=== PATIENT | female | born 1960 | race Caucasian/White ===

== ENCOUNTER 2024-01-05 20:42 | Emergency (ER) | payer OTHER, SELFPAY ==
[2024-01-05 21:01] VITALS: BP 140/83; PULSE 81; RESP 22; TEMP 37.6; O2SAT 98; BMI 25.6
--- NOTE | 2024-01-05 21:35 | ED_ITS ---
HPI - Nausea/Vomiting/Diarrhea General Time Seen by Provider: 21:35 <Ivelisse Lu MD - Last Filed: 01/06/24 00:57> Date Seen: 01/05/24 <Ivelisse Lu MD - Last Filed: 01/06/24 00:57> Chief complaint: Nausea/Vomiting <Ivelisse Lu MD - Last Filed: 01/06/24 00:57> Stated complaint: Vomit, dizzy <Ivelisse Lu MD - Last Filed: 01/06/24 00:57> Time Seen by Provider: 01/05/24 21:35 <Ivelisse Lu MD - Last Filed: 01/06/24 00:57> Source: patient <Ivelisse Lu MD - Last Filed: 01/06/24 00:57> Mode of arrival: ambulatory <Ivelisse Lu MD - Last Filed: 01/06/24 00:57> Limitations: no limitations <Ivelisse Lu MD - Last Filed: 01/06/24 00:57> History of Present Illness HPI Narrative: Patient is a pleasant 63-year-old female very dramatic in appearance with vomiting is started at 0930 this morning. Patient notes that she awoke feeling okay. At 0930 she was having breakfast and suddenly had the urge to vomit. She has had continued vomiting all day to the point where she has only retching now. She notes body aches as well and feeling very hot. She denies diarrhea. She notes her belly hurts everywhere. She has a history of chronic constipation, small-bowel obstruction greater than a decade ago, many abdominal surgeries including splenectomy. She has no known ill contacts. She has not been able to take food or any medications. Her significant other is present and appears very loving and supportive. <Ivelisse Lu MD - Last Filed: 01/06/24 00:57> Associated nausea: Yes <Ivelisse Lu MD - Last Filed: 01/06/24 00:57> Related Data Home medications: Home Medications Medication Instructions Recorded Confirmed albuterol sulfate 90 mcg/actuation 2 puff inhalation Q6H PRN wheezing 01/05/24 01/05/24 aerosol inhaler (Ventolin HFA) levothyroxine 150 mcg tablet 150 mcg PO DAILY 01/05/24 01/05/24 valsartan 160 mg tablet 160 mg PO DAILY 01/05/24 01/05/24 Previous Rx's Medication Instructions Recorded promethazine 25 mg tablet 25 mg PO Q6H PRN #10 tabs 01/06/24 <Ivelisse Lu MD - Last Filed: 01/06/24 00:57> Allergies/Adverse reactions: Allergies Allergy/AdvReac Type Severity Reaction Status Date / Time lisinopril Allergy Mild Cough Verified 01/05/24 22:06 prednisone Allergy Unknown Verified 01/05/24 22:06 <Ivelisse Lu MD - Last Filed: 01/06/24 00:57> Review of Systems Status of ROS: Reports: 10 or more systems reviewed and unremarkable except as noted in History and below <Ivelisse Lu MD - Last Filed: 01/06/24 00:57> Narrative: Body ache <Ivelisse Lu MD - Last Filed: 01/06/24 00:57> Const: Reports: fever, chills and fatigue <Ivelisse Lu MD - Last Filed: 01/06/24 00:57> Eyes: Denies: change in vision <Ivelisse Lu MD - Last Filed: 01/06/24 00:57> ENMT: Reports: nasal discharge (When vomiting); Denies: throat pain, neck pain, throat swelling or nasal congestion <Ivelisse Lu MD - Last Filed: 01/06/24 00:57> Cardio: Denies: chest pain, palpitations or shortness of breath with exertion <Ivelisse Lu MD - Last Filed: 01/06/24 00:57> Resp: Denies: shortness of breath or cough <Ivelisse Lu MD - Last Filed: 01/06/24 00:57> GI: Reports: abdominal pain, nausea, vomiting and constipation; Denies: diarrhea or blood in stool <Ivelisse Lu MD - Last Filed: 01/06/24 00:57> : Denies: painful urination <Ivelisse Lu MD - Last Filed: 01/06/24 00:57> Musculo: Denies: neck pain <Ivelisse Lu MD - Last Filed: 01/06/24 00:57> Integ/Breast: Denies: rash <Ivelisse Lu MD - Last Filed: 01/06/24 00:57> Neuro: Reports: weakness in extremities <Ivelisse Lu MD - Last Filed: 01/06/24 00:57> Endo: Reports: fatigue <Ivelisse Lu MD - Last Filed: 01/06/24 00:57> Allergy/Immuno: Denies: throat swelling <Ivelisse Lu MD - Last Filed: 01/06/24 00:57> [facility] Social History: Social History Smoking Status: Never smoker How often do you have a drink containing alcohol: never AUDIT-C Alcohol total score: 0 Non-prescribed substance use: marijuana (any form) service: No <Ivelisse Lu MD - Last Filed: 01/06/24 00:57> Exam Narrative: Exam Narrative: Patient is awake alert oriented when I enter room. She is very anxious. Very dramatic when she is vomiting. Her eyes are clear. Face symmetrical. Heart with a regular rate and rhythm. Lungs are clear bilaterally. Abdomen shows some right upper quadrant tenderness. Lower extremities without edema. She is able to move all of her extremities. Initially in the position but when vomiting able to sit up and retching again is very dramatic. <Ivelisse Lu MD - Last Filed: 01/06/24 00:57> Const: Vital Signs, click to edit/add: Vital Signs - 24 hr 01/05/24 21:01 01/06/24 00:20 01/06/24 00:30 Temperature 99.7 F H Pulse Rate [Pulse Oximeter] 81 72 Respiratory Rate 22 16 Blood Pressure [Ri ght Upper Arm] 140/83 H 174/120 H Pulse Oximetry 98 98 94 Oxygen Delivery Me thod Room Air Room Air <Ivelisse Lu MD - Last Filed: 01/06/24 00:57> Vital Signs, click to edit/add: Vital Signs - 24 hr 01/05/24 21:01 01/06/24 00:20 01/06/24 00:30 Temperature 99.7 F H Pulse Rate [Pulse Oximeter] 81 72 Respiratory Rate 22 16 Blood Pressure [Ri ght Upper Arm] 140/83 H 174/120 H Pulse Oximetry 98 98 94 Oxygen Delivery Me thod Room Air Room Air <Jose Wetzel MD - Last Filed: 01/06/24 02:05> Documenting provider has reviewed patient's vital signs: yes <Ivelisse Lu MD - Last Filed: 01/06/24 00:57> Course Course ED Course: Differential diagnosis includes but is not limited to small-bowel obstruction, biliary colic, gastritis, COVID, influenza. Will place IV, give 1 L normal saline Zofran 4 mg and Toradol 15 mg IV. Will check CBC, comprehensive panel, CRP, urinalysis and COVID/influenza/RSV. One must also consider angina, underlying acute coronary event. Will add EKG and troponin. Plan on re-examination and awaiting labs to determine if imaging is required. <Ivelisse Lu MD - Last Filed: 01/06/24 00:57> Reevaluation(s) Reevaluation #1: Patient noted to have prolonged QT on her EKG. Will check magnesium level. Patient noted to be much improved after Zofran. Still has persisting abdominal pain mainly in the mid sided abdomen, right lower quadrant. No rebound tenderness at this time. Given ongoing symptoms will order CT of the abdomen with IV contrast. <Ivelisse Lu MD - Last Filed: 01/06/24 00:57> Reevaluation #2: CT of the abdomen does show evidence of portal hypertension with esophageal varices. Absent spleen. Gallbladder is unremarkable. Re- examination shows no right upper quadrant tenderness at this time. Patient improved significantly after Zofran but now nausea has been returning. Given patient's prolonged QT on EKG will use Ativan 0.5 mg p.o.. Fortunately no evidence of small-bowel obstruction. Triple swab is negative. EKG does not show any acute ST or T-wave changes. Initial troponin is elevated at 0.06 this is in the indeterminate range and this will be repeated at this time. <Ivelisse Lu MD - Last Filed: 01/06/24 00:57> CT of the abdomen does show evidence of portal hypertension with esophageal varices. Absent spleen. Gallbladder is unremarkable. Re- examination shows no right upper quadrant tenderness at this time. Patient improved significantly after Zofran but now nausea has been returning. Given patient's prolonged QT on EKG will use Ativan 0.5 mg p.o.. Fortunately no evidence of small-bowel obstruction. Triple swab is negative. EKG does not show any acute ST or T-wave changes. Initial troponin is elevated at 0.06 this is in the indeterminate range and this will be repeated at this time. <Jose Wetzel MD - Last Filed: 01/06/24 02:05> Reevaluation #3: Patient continues to have no emesis. She states she has a headache coming on is requesting more Toradol. I did explain that I am unable to repeat the dose of Toradol at this time. She does deny history of narcotic addiction. Will use morphine 4 mg IV. I did explain to patient findings on her CT which include cirrhosis as well as portal hypertension and esophageal varices. She does note that she did have significant alcohol use previously and was aware of the cirrhosis. She will need to follow-up with specialists in regards to these findings. Alcohol level is 0. <Ivelisse Lu MD - Last Filed: 01/06/24 00:57> Additional Reevaluation(s): 1:43 a.m. labs independently interpreted by me with urine drug screen positive for amphetamines, cocaine, and marijuana in spite of patient Nile of using any drugs symptoms today are likely related to polysubstance abuse with component of cannabis hyperemesis syndrome. Additionally, slightly elevated troponin is likely leak from stress. Lactate was slightly elevated initially, repeat is normal. Negative CRP. Anticipate discharge unless significant increase in troponin. Repeat EKG performed at 1:52 a.m. independently interpreted by me with sinus rhythm rate 69, no acute ST elevations or depressions, normal intervals, normal axis, QTC 507, MD 184. Compared to prior of earlier today, QTC is less prolonged. Repeat troponin is 0.09. Patient has had a slow rise in troponins while she has been in the department, however reports no chest pain and no EKG changes. Patient rechecked and she is feeling better, resting comfortably. We discussed findings today including slightly elevated troponin. Discussed admission to the hospital, patient declined admission and would like to be discharged. Given that troponin leak is likely secondary due to strain and not acute coronary syndrome, this is reasonable. Patient will follow up with primary care. <Jose Wetzel MD - Last Filed: 01/06/24 02:05> Vital Signs Vital signs: Initial Vital Signs Temperature 99.7 F H 01/05/24 21:01 Temperature Source Temporal Artery Scan 01/05/24 21:01 Pulse Rate 81 01/05/24 21:01 Respiratory Rate 22 01/05/24 21:01 Blood Pressure 140/83 H 01/05/24 21:01 Blood Pressure Mean 102 01/05/24 21:01 Blood Pressure Position Sitting 01/05/24 21:01 Pulse Oximetry 98 01/05/24 21:01 Oxygen Delivery Method Room Air 01/05/24 21:01 Vital Signs Temperature 99.7 F H 01/05/24 21:01 Pulse Rate 81 01/05/24 21:01 Respiratory Rate 22 01/05/24 21:01 Blood Pressure 140/83 H 01/05/24 21:01 Pulse Oximetry 98 01/05/24 21:01 Oxygen Delivery Method Room Air 01/05/24 21:01 Temperature 99.7 F H 01/05/24 21:01 Pulse Rate 72 01/06/24 00:20 Respiratory Rate 16 01/06/24 00:20 Blood Pressure 174/120 H 01/06/24 00:20 Pulse Oximetry 94 01/06/24 00:30 Oxygen Delivery Method Room Air 01/06/24 00:20 <Ivelisse Lu MD - Last Filed: 01/06/24 00:57> Initial Vital Signs Temperature 99.7 F H 01/05/24 21:01 Temperature Source Temporal Artery Scan 01/05/24 21:01 Pulse Rate 81 01/05/24 21:01 Respiratory Rate 22 01/05/24 21:01 Blood Pressure 140/83 H 01/05/24 21:01 Blood Pressure Mean 102 01/05/24 21:01 Blood Pressure Position Sitting 01/05/24 21:01 Pulse Oximetry 98 01/05/24 21:01 Oxygen Delivery Method Room Air 01/05/24 21:01 Vital Signs Temperature 99.7 F H 01/05/24 21:01 Pulse Rate 81 01/05/24 21:01 Respiratory Rate 22 01/05/24 21:01 Blood Pressure 140/83 H 01/05/24 21:01 Pulse Oximetry 98 01/05/24 21:01 Oxygen Delivery Method Room Air 01/05/24 21:01 Temperature 99.7 F H 01/05/24 21:01 Pulse Rate 72 01/06/24 00:20 Respiratory Rate 16 01/06/24 00:20 Blood Pressure 174/120 H 01/06/24 00:20 Pulse Oximetry 94 01/06/24 00:30 Oxygen Delivery Method Room Air 01/06/24 00:20 <Jose Wetzel MD - Last Filed: 01/06/24 02:05> Medications Administered Medications: Generic Name Dose Route Start Last Admin Trade Name Freq PRN Reason Stop Dose Admin Morphine Sulfate 4 mg 01/06/24 00:52 01/06/24 01:02 Morphine 4 Mg/Ml Inj IVP 01/06/24 00:53 4 mg ONCE ONE Administration Discontinued Medications Generic Name Dose Route Start Last Admin Trade Name Freq PRN Reason Stop Dose Admin Sodium Chloride 1,000 mls @ 1,000 mls/hr 01/05/24 21:43 01/05/24 23:10 0.9 % Sodium Chloride 1000 Ml IV 01/05/24 22:42 Infused .Q1H TEENA Infusion Sodium Chloride 1,000 mls @ 1,000 mls/hr 01/05/24 23:28 01/06/24 00:51 0.9 % Sodium Chloride 1000 Ml IV 01/06/24 00:27 Infused .Q1H TEENA Infusion Magnesium Sulfate 2 gm in 50 mls @ 150 mls/hr 01/05/24 23:28 01/06/24 00:16 Magnesium Iv IVPB 01/05/24 23:47 Infused ONCE ONE Infusion Ketorolac Tromethamine 15 mg 01/05/24 21:43 01/05/24 22:10 Ketorolac 15 Mg/Ml Inj IVP 01/05/24 21:44 15 mg ONCE ONE Administration Lorazepam 0.5 mg 01/06/24 00:03 01/06/24 00:11 Lorazepam 2 Mg/Ml Inj IVP 01/06/24 00:04 0.5 mg ONCE ONE Administration Ondansetron HCl 4 mg 01/05/24 21:43 01/05/24 22:10 Ondansetron 2 Mg/Ml Inj IVP 01/05/24 21:44 4 mg ONCE ONE Administration <Ivelisse Lu MD - Last Filed: 01/06/24 00:57> Generic Name Dose Route Start Last Admin Trade Name Alyssa PRN Reason Stop Dose Admin Morphine Sulfate 4 mg 01/06/24 00:52 01/06/24 01:02 Morphine 4 Mg/Ml Inj IVP 01/06/24 00:53 4 mg ONCE ONE Administration Discontinued Medications Generic Name Dose Route Start Last Admin Trade Name Alyssa PRN Reason Stop Dose Admin Sodium Chloride 1,000 mls @ 1,000 mls/hr 01/05/24 21:43 01/05/24 23:10 0.9 % Sodium Chloride 1000 Ml IV 01/05/24 22:42 Infused .Q1H TEENA Infusion Sodium Chloride 1,000 mls @ 1,000 mls/hr 01/05/24 23:28 01/06/24 00:51 0.9 % Sodium Chloride 1000 Ml IV 01/06/24 00:27 Infused .Q1H TEENA Infusion Magnesium Sulfate 2 gm in 50 mls @ 150 mls/hr 01/05/24 23:28 01/06/24 00:16 Magnesium Iv IVPB 01/05/24 23:47 Infused ONCE ONE Infusion Ketorolac Tromethamine 15 mg 01/05/24 21:43 01/05/24 22:10 Ketorolac 15 Mg/Ml Inj IVP 01/05/24 21:44 15 mg ONCE ONE Administration Lorazepam 0.5 mg 01/06/24 00:03 01/06/24 00:11 Lorazepam 2 Mg/Ml Inj IVP 01/06/24 00:04 0.5 mg ONCE ONE Administration Ondansetron HCl 4 mg 01/05/24 21:43 01/05/24 22:10 Ondansetron 2 Mg/Ml Inj IVP 01/05/24 21:44 4 mg ONCE ONE Administration <Jose Wetzel MD - Last Filed: 01/06/24 02:05> MDM - Nausea/Vomiting/Diarrhea MDM Narrative Medical decision making narrative: 1. Vomiting-fairly dramatic evidence of vomiting and dry heaving. Patient denies to me history of daily marijuana use. States last use was 2 weeks ago and prior to that it was greater than 30 years ago. No evidence of acute abnormality noted on abdominal CT. Patient does have evidence of esophageal nathan ices and thus obviously would like to inhibit any retching. Zofran initially used but now I do note prolonged QT. Will use Ativan at this time. No evidence of colitis, cholelithiasis or cholecystitis. No evidence of bowel obstruction. Vomiting has since resolved. Certainly could be attributed to a viral type illness. Will add urinary tox. 2. Esophageal varices-this appears to be chronic problem. No reports of bleeding while vomiting. Did not witness any him hematemesis here. Patient reveals that she did have past history of known cirrhosis as well as heavy drinking. She does not use alcohol anymore. Alcohol level is 0. 3. Prolonged QT. QT corrected 589 milliseconds. Magnesium on the low side and with persistent vomiting did elect to replace with 2 g IV magnesium. 4. Elevated troponin-patient denies chest pain, has no acute ST or T-wave changes noted on EKG but now has 2 cardiac enzymes that are in the indeterminate range. 0.06 followed by 0.07. Will need to trend this once more. Will have the lab do a backup as these are point of care troponins and would want to ensure that these are accurate. 5. Disposition-I have signed this patient out to my partner Dr. Wetzel for follow-up of EKG and troponin in 2 hours, drug screen. <Ivelisse Lu MD - Last Filed: 01/06/24 00:57> Medical Records Medical records narrative: No previous records in our system. <Ivelisse Lu MD - Last Filed: 01/06/24 00:57> Lab Data Attestation: I reviewed the patient's lab results. <Ivelisse Lu MD - Last Filed: 01/06/24 00:57> Labs: Lab Results 01/05/24 01/05/24 01/05/24 Range/Units 21:00 21:43 21:55 WBC 4.15 L (4.50-11.00) K/uL RBC 4.11 (4.00-5.20) m/uL Hgb 13.2 (12.0-16.0) gm/dL Hct 37.7 (33.0-51.0) % MCV 92 (80-100) fL MCH 32 (26-34) pg MCHC 35 (32-36) gm/dL RDW Coeff of Nathan 11.6 (11.5-15.5) % Plt Count 328 (140-440) K/uL Neut % (Auto) 67.4 (42.0-72.0) % Lymph % (Auto) 23.9 (20-44) % [place] % (Auto) 7.5 (0.0-11.0) % Eos % (Auto) 0.0 (0.0-7.0) % Baso % (Auto) 1.2 (0.0-3.0) % Neut # (Auto) 2.80 (1.7-7.0) K/uL Lymph # (Auto) 1.00 (0.90-2.90) K/uL [place] # (Auto) 0.30 (0.00-0.90) K/UL Eos # (Auto) 0.00 (0.00-0.50) K/uL Baso # (Auto) 0.00 (0.00-0.30) K/uL Abs Immat Gran (auto) 0.00 (0.00-0.30) K/uL Imm/Tot Granulo (auto) 0.0 % Diff Slide Review Acceptable Review (Acceptable) Sodium 136 (135-149) mmol/L Potassium 3.7 (3.6-5.1) mmol/L Chloride 104 (96-114) mmol/L Carbon Dioxide 22 (20-32) mmol/L Anion Gap 10 (7-15) mEq/L BUN 13 (7-30) mg/dL Creatinine 0.4 L (0.5-1.5) mg/dL Estimated Creat Clear 45.54 Estimated GFR 111 ml/min Glucose 93 (60-115) mg/dL Lactate 3.7 H (0.5-1.9) mmol/L Calcium 9.7 (8.4-10.6) mg/dL Magnesium 1.7 (1.5-2.6) mg/dL Total Bilirubin 1.1 (0.1-1.5) mg/dL AST 40 H (12-35) U/L ALT 30 (4-35) U/L Alkaline Phosphatase 82 (40-150) U/L Troponin I 0.06 H* (0.01-0.04) ng/mL C-Reactive Protein < 0.5 L (0.5-1.0) mg/dL Total Protein 8.6 H (6.0-8.3) g/dL Albumin 4.6 (3.3-5.0) g/dL Urine Color (Yellow) Urine Appearance (Clear) Urine pH (5.0-8.5) Ur Specific [place] (1.000-1.030) Urine Protein (Negative) Urine Glucose (UA) (Negative) Urine Ketones (Negative) Urine Blood (Negative) Urine Nitrite (Negative) Urine Bilirubin (Negative) Urine Urobilinogen (0.2-1.0) Ur Leukocyte Esterase (Negative) Urine RBC (0-2) Urine WBC (0-5) Ur Squamous Epith Cells (None-Few) Amorphous Sediment (None) Urine Bacteria (None) Urine Opiates Screen (Negative) Ur Oxycodone Screen (Negative) Urine Methadone Screen (Negative) Ur Barbiturates Screen (Negative) U Tricyclic Antidepress (Negative) Ur Phencyclidine Scrn (Negative) Ur Amphetamines Screen (Negative) U Methamphetamines Scrn (Negative) U Benzodiazepines Scrn (Negative) Urine Cocaine Screen (Negative) U Marijuana (THC) Screen (Negative) Ur Drug Screen Comment Ethyl Alcohol < 0.01 L (0.01-0.03) % SARS-CoV-2 (PCR) Negative SARS-CoV-2 (Negative) Influenza Type A (PCR) Negative PCR FLU A (Negative) Influenza Type B (PCR) Negative PCR FLU B (Negative) RSV (PCR) Negative PCR RSV (Negative) Lab Acknowledgement POC Troponin I (0.01-0.04) ng/ml 01/05/24 01/05/24 01/05/24 Range/Units 22:42 23:45 23:55 WBC (4.50-11.00) K/uL RBC (4.00-5.20) m/uL Hgb (12.0-16.0) gm/dL Hct (33.0-51.0) % MCV (80-100) fL MCH (26-34) pg MCHC (32-36) gm/dL RDW Coeff of Nathan (11.5-15.5) % Plt Count (140-440) K/uL Neut % (Auto) (42.0-72.0) % Lymph % (Auto) (20-44) % [place] % (Auto) (0.0-11.0) % Eos % (Auto) (0.0-7.0) % Baso % (Auto) (0.0-3.0) % Neut # (Auto) (1.7-7.0) K/uL Lymph # (Auto) (0.90-2.90) K/uL [place] # (Auto) (0.00-0.90) K/UL Eos # (Auto) (0.00-0.50) K/uL Baso # (Auto) (0.00-0.30) K/uL Abs Immat Gran (auto) (0.00-0.30) K/uL Imm/Tot Granulo (auto) % Diff Slide Review (Acceptable) Sodium (135-149) mmol/L Potassium (3.6-5.1) mmol/L Chloride (96-114) mmol/L Carbon Dioxide (20-32) mmol/L Anion Gap (7-15) mEq/L BUN (7-30) mg/dL Creatinine (0.5-1.5) mg/dL Estimated Creat Clear Estimated GFR ml/min Glucose (60-115) mg/dL Lactate 1.3 (0.5-1.9) mmol/L Calcium (8.4-10.6) mg/dL Magnesium (1.5-2.6) mg/dL Total Bilirubin (0.1-1.5) mg/dL AST (12-35) U/L ALT (4-35) U/L Alkaline Phosphatase (40-150) U/L Troponin I 0.08 H* (0.01-0.04) ng/mL C-Reactive Protein (0.5-1.0) mg/dL Total Protein (6.0-8.3) g/dL Albumin (3.3-5.0) g/dL Urine Color (Yellow) Urine Appearance (Clear) Urine pH (5.0-8.5) Ur Specific [place] (1.000-1.030) Urine Protein (Negative) Urine Glucose (UA) (Negative) Urine Ketones (Negative) Urine Blood (Negative) Urine Nitrite (Negative) Urine Bilirubin (Negative) Urine Urobilinogen (0.2-1.0) Ur Leukocyte Esterase (Negative) Urine RBC (0-2) Urine WBC (0-5) Ur Squamous Epith Cells (None-Few) Amorphous Sediment (None) Urine Bacteria (None) Urine Opiates Screen (Negative) Ur Oxycodone Screen (Negative) Urine Methadone Screen (Negative) Ur Barbiturates Screen (Negative) U Tricyclic Antidepress (Negative) Ur Phencyclidine Scrn (Negative) Ur Amphetamines Screen (Negative) U Methamphetamines Scrn (Negative) U Benzodiazepines Scrn (Negative) Urine Cocaine Screen (Negative) U Marijuana (THC) Screen (Negative) Ur Drug Screen Comment Ethyl Alcohol (0.01-0.03) % SARS-CoV-2 (PCR) (Negative) Influenza Type A (PCR) (Negative) Influenza Type B (PCR) (Negative) RSV (PCR) (Negative) Lab Acknowledgement Test Added POC Troponin I 0.07 H (0.01-0.04) ng/ml 01/06/24 01/06/24 01/06/24 Range/Units 00:27 00:34 01:45 WBC (4.50-11.00) K/uL RBC (4.00-5.20) m/uL Hgb (12.0-16.0) gm/dL Hct (33.0-51.0) % MCV (80-100) fL MCH (26-34) pg MCHC (32-36) gm/dL RDW Coeff of Nathan (11.5-15.5) % Plt Count (140-440) K/uL Neut % (Auto) (42.0-72.0) % Lymph % (Auto) (20-44) % [place] % (Auto) (0.0-11.0) % Eos % (Auto) (0.0-7.0) % Baso % (Auto) (0.0-3.0) % Neut # (Auto) (1.7-7.0) K/uL Lymph # (Auto) (0.90-2.90) K/uL [place] # (Auto) (0.00-0.90) K/UL Eos # (Auto) (0.00-0.50) K/uL Baso # (Auto) (0.00-0.30) K/uL Abs Immat Gran (auto) (0.00-0.30) K/uL Imm/Tot Granulo (auto) % Diff Slide Review (Acceptable) Sodium (135-149) mmol/L Potassium (3.6-5.1) mmol/L Chloride (96-114) mmol/L Carbon Dioxide (20-32) mmol/L Anion Gap (7-15) mEq/L BUN (7-30) mg/dL Creatinine (0.5-1.5) mg/dL Estimated Creat Clear Estimated GFR ml/min Glucose (60-115) mg/dL Lactate (0.5-1.9) mmol/L Calcium (8.4-10.6) mg/dL Magnesium (1.5-2.6) mg/dL Total Bilirubin (0.1-1.5) mg/dL AST (12-35) U/L ALT (4-35) U/L Alkaline Phosphatase (40-150) U/L Troponin I (0.01-0.04) ng/mL C-Reactive Protein (0.5-1.0) mg/dL Total Protein (6.0-8.3) g/dL Albumin (3.3-5.0) g/dL Urine Color Yellow (Yellow) Urine Appearance Clear (Clear) Urine pH 7.5 (5.0-8.5) Ur Specific [place] 1.020 (1.000-1.030) Urine Protein 1+ A (Negative) Urine Glucose (UA) Negative (Negative) Urine Ketones 1+ A (Negative) Urine Blood 1+ A (Negative) Urine Nitrite Negative (Negative) Urine Bilirubin Negative (Negative) Urine Urobilinogen 0.2 (0.2-1.0) Ur Leukocyte Esterase Negative (Negative) Urine RBC 0-2 (0-2) Urine WBC 0-2 (0-5) Ur Squamous Epith Cells Few (None-Few) Amorphous Sediment Few A (None) Urine Bacteria None (None) Urine Opiates Screen Negative (Negative) Ur Oxycodone Screen Negative (Negative) Urine Methadone Screen Negative (Negative) Ur Barbiturates Screen Negative (Negative) U Tricyclic Antidepress Negative (Negative) Ur Phencyclidine Scrn Negative (Negative) Ur Amphetamines Screen POSITIVE A (Negative) U Methamphetamines Scrn Negative (Negative) U Benzodiazepines Scrn Negative (Negative) Urine Cocaine Screen POSITIVE A (Negative) U Marijuana (THC) Screen POSITIVE A (Negative) Ur Drug Screen Comment See Note Ethyl Alcohol (0.01-0.03) % SARS-CoV-2 (PCR) (Negative) Influenza Type A (PCR) (Negative) Influenza Type B (PCR) (Negative) RSV (PCR) (Negative) Lab Acknowledgement Test Added POC Troponin I 0.09 H (0.01-0.04) ng/ml <Ivelisse Lu MD - Last Filed: 01/06/24 00:57> Lab Results 01/05/24 01/05/24 01/05/24 Range/Units 21:00 21:43 21:55 WBC 4.15 L (4.50-11.00) K/uL RBC 4.11 (4.00-5.20) m/uL Hgb 13.2 (12.0-16.0) gm/dL Hct 37.7 (33.0-51.0) % MCV 92 (80-100) fL MCH 32 (26-34) pg MCHC 35 (32-36) gm/dL RDW Coeff of Nathan 11.6 (11.5-15.5) % Plt Count 328 (140-440) K/uL Neut % (Auto) 67.4 (42.0-72.0) % Lymph % (Auto) 23.9 (20-44) % [place] % (Auto) 7.5 (0.0-11.0) % Eos % (Auto) 0.0 (0.0-7.0) % Baso % (Auto) 1.2 (0.0-3.0) % Neut # (Auto) 2.80 (1.7-7.0) K/uL Lymph # (Auto) 1.00 (0.90-2.90) K/uL [place] # (Auto) 0.30 (0.00-0.90) K/UL Eos # (Auto) 0.00 (0.00-0.50) K/uL Baso # (Auto) 0.00 (0.00-0.30) K/uL Abs Immat Gran (auto) 0.00 (0.00-0.30) K/uL Imm/Tot Granulo (auto) 0.0 % Diff Slide Review Acceptable Review (Acceptable) Sodium 136 (135-149) mmol/L Potassium 3.7 (3.6-5.1) mmol/L Chloride 104 (96-114) mmol/L Carbon Dioxide 22 (20-32) mmol/L Anion Gap 10 (7-15) mEq/L BUN 13 (7-30) mg/dL Creatinine 0.4 L (0.5-1.5) mg/dL Estimated Creat Clear 45.54 Estimated GFR 111 ml/min Glucose 93 (60-115) mg/dL Lactate 3.7 H (0.5-1.9) mmol/L Calcium 9.7 (8.4-10.6) mg/dL Magnesium 1.7 (1.5-2.6) mg/dL Total Bilirubin 1.1 (0.1-1.5) mg/dL AST 40 H (12-35) U/L ALT 30 (4-35) U/L Alkaline Phosphatase 82 (40-150) U/L Troponin I 0.06 H* (0.01-0.04) ng/mL C-Reactive Protein < 0.5 L (0.5-1.0) mg/dL Total Protein 8.6 H (6.0-8.3) g/dL Albumin 4.6 (3.3-5.0) g/dL Urine Color (Yellow) Urine Appearance (Clear) Urine pH (5.0-8.5) Ur Specific [place] (1.000-1.030) Urine Protein (Negative) Urine Glucose (UA) (Negative) Urine Ketones (Negative) Urine Blood (Negative) Urine Nitrite (Negative) Urine Bilirubin (Negative) Urine Urobilinogen (0.2-1.0) Ur Leukocyte Esterase (Negative) Urine RBC (0-2) Urine WBC (0-5) Ur Squamous Epith Cells (None-Few) Amorphous Sediment (None) Urine Bacteria (None) Urine Opiates Screen (Negative) Ur Oxycodone Screen (Negative) Urine Methadone Screen (Negative) Ur Barbiturates Screen (Negative) U Tricyclic Antidepress (Negative) Ur Phencyclidine Scrn (Negative) Ur Amphetamines Screen (Negative) U Methamphetamines Scrn (Negative) U Benzodiazepines Scrn (Negative) Urine Cocaine Screen (Negative) U Marijuana (THC) Screen (Negative) Ur Drug Screen Comment Ethyl Alcohol < 0.01 L (0.01-0.03) % SARS-CoV-2 (PCR) Negative SARS-CoV-2 (Negative) Influenza Type A (PCR) Negative PCR FLU A (Negative) Influenza Type B (PCR) Negative PCR FLU B (Negative) RSV (PCR) Negative PCR RSV (Negative) Lab Acknowledgement POC Troponin I (0.01-0.04) ng/ml 01/05/24 01/05/24 01/05/24 Range/Units 22:42 23:45 23:55 WBC (4.50-11.00) K/uL RBC (4.00-5.20) m/uL Hgb (12.0-16.0) gm/dL Hct (33.0-51.0) % MCV (80-100) fL MCH (26-34) pg MCHC (32-36) gm/dL RDW Coeff of Nathan (11.5-15.5) % Plt Count (140-440) K/uL Neut % (Auto) (42.0-72.0) % Lymph % (Auto) (20-44) % [place] % (Auto) (0.0-11.0) % Eos % (Auto) (0.0-7.0) % Baso % (Auto) (0.0-3.0) % Neut # (Auto) (1.7-7.0) K/uL Lymph # (Auto) (0.90-2.90) K/uL [place] # (Auto) (0.00-0.90) K/UL Eos # (Auto) (0.00-0.50) K/uL Baso # (Auto) (0.00-0.30) K/uL Abs Immat Gran (auto) (0.00-0.30) K/uL Imm/Tot Granulo (auto) % Diff Slide Review (Acceptable) Sodium (135-149) mmol/L Potassium (3.6-5.1) mmol/L Chloride (96-114) mmol/L Carbon Dioxide (20-32) mmol/L Anion Gap (7-15) mEq/L BUN (7-30) mg/dL Creatinine (0.5-1.5) mg/dL Estimated Creat Clear Estimated GFR ml/min Glucose (60-115) mg/dL Lactate 1.3 (0.5-1.9) mmol/L Calcium (8.4-10.6) mg/dL Magnesium (1.5-2.6) mg/dL Total Bilirubin (0.1-1.5) mg/dL AST (12-35) U/L ALT (4-35) U/L Alkaline Phosphatase (40-150) U/L Troponin I 0.08 H* (0.01-0.04) ng/mL C-Reactive Protein (0.5-1.0) mg/dL Total Protein (6.0-8.3) g/dL Albumin (3.3-5.0) g/dL Urine Color (Yellow) Urine Appearance (Clear) Urine pH (5.0-8.5) Ur Specific [place] (1.000-1.030) Urine Protein (Negative) Urine Glucose (UA) (Negative) Urine Ketones (Negative) Urine Blood (Negative) Urine Nitrite (Negative) Urine Bilirubin (Negative) Urine Urobilinogen (0.2-1.0) Ur Leukocyte Esterase (Negative) Urine RBC (0-2) Urine WBC (0-5) Ur Squamous Epith Cells (None-Few) Amorphous Sediment (None) Urine Bacteria (None) Urine Opiates Screen (Negative) Ur Oxycodone Screen (Negative) Urine Methadone Screen (Negative) Ur Barbiturates Screen (Negative) U Tricyclic Antidepress (Negative) Ur Phencyclidine Scrn (Negative) Ur Amphetamines Screen (Negative) U Methamphetamines Scrn (Negative) U Benzodiazepines Scrn (Negative) Urine Cocaine Screen (Negative) U Marijuana (THC) Screen (Negative) Ur Drug Screen Comment Ethyl Alcohol (0.01-0.03) % SARS-CoV-2 (PCR) (Negative) Influenza Type A (PCR) (Negative) Influenza Type B (PCR) (Negative) RSV (PCR) (Negative) Lab Acknowledgement Test Added POC Troponin I 0.07 H (0.01-0.04) ng/ml 01/06/24 01/06/24 01/06/24 Range/Units 00:27 00:34 01:45 WBC (4.50-11.00) K/uL RBC (4.00-5.20) m/uL Hgb (12.0-16.0) gm/dL Hct (33.0-51.0) % MCV (80-100) fL MCH (26-34) pg MCHC (32-36) gm/dL RDW Coeff of Nathan (11.5-15.5) % Plt Count (140-440) K/uL Neut % (Auto) (42.0-72.0) % Lymph % (Auto) (20-44) % [place] % (Auto) (0.0-11.0) % Eos % (Auto) (0.0-7.0) % Baso % (Auto) (0.0-3.0) % Neut # (Auto) (1.7-7.0) K/uL Lymph # (Auto) (0.90-2.90) K/uL [place] # (Auto) (0.00-0.90) K/UL Eos # (Auto) (0.00-0.50) K/uL Baso # (Auto) (0.00-0.30) K/uL Abs Immat Gran (auto) (0.00-0.30) K/uL Imm/Tot Granulo (auto) % Diff Slide Review (Acceptable) Sodium (135-149) mmol/L Potassium (3.6-5.1) mmol/L Chloride (96-114) mmol/L Carbon Dioxide (20-32) mmol/L Anion Gap (7-15) mEq/L BUN (7-30) mg/dL Creatinine (0.5-1.5) mg/dL Estimated Creat Clear Estimated GFR ml/min Glucose (60-115) mg/dL Lactate (0.5-1.9) mmol/L Calcium (8.4-10.6) mg/dL Magnesium (1.5-2.6) mg/dL Total Bilirubin (0.1-1.5) mg/dL AST (12-35) U/L ALT (4-35) U/L Alkaline Phosphatase (40-150) U/L Troponin I (0.01-0.04) ng/mL C-Reactive Protein (0.5-1.0) mg/dL Total Protein (6.0-8.3) g/dL Albumin (3.3-5.0) g/dL Urine Color Yellow (Yellow) Urine Appearance Clear (Clear) Urine pH 7.5 (5.0-8.5) Ur Specific [place] 1.020 (1.000-1.030) Urine Protein 1+ A (Negative) Urine Glucose (UA) Negative (Negative) Urine Ketones 1+ A (Negative) Urine Blood 1+ A (Negative) Urine Nitrite Negative (Negative) Urine Bilirubin Negative (Negative) Urine Urobilinogen 0.2 (0.2-1.0) Ur Leukocyte Esterase Negative (Negative) Urine RBC 0-2 (0-2) Urine WBC 0-2 (0-5) Ur Squamous Epith Cells Few (None-Few) Amorphous Sediment Few A (None) Urine Bacteria None (None) Urine Opiates Screen Negative (Negative) Ur Oxycodone Screen Negative (Negative) Urine Methadone Screen Negative (Negative) Ur Barbiturates Screen Negative (Negative) U Tricyclic Antidepress Negative (Negative) Ur Phencyclidine Scrn Negative (Negative) Ur Amphetamines Screen POSITIVE A (Negative) U Methamphetamines Scrn Negative (Negative) U Benzodiazepines Scrn Negative (Negative) Urine Cocaine Screen POSITIVE A (Negative) U Marijuana (THC) Screen POSITIVE A (Negative) Ur Drug Screen Comment See Note Ethyl Alcohol (0.01-0.03) % SARS-CoV-2 (PCR) (Negative) Influenza Type A (PCR) (Negative) Influenza Type B (PCR) (Negative) RSV (PCR) (Negative) Lab Acknowledgement Test Added POC Troponin I 0.09 H (0.01-0.04) ng/ml <Jose Wetzel MD - Last Filed: 01/06/24 02:05> Imaging Data CT scan - abdomen: Attestation: I have reviewed the pertinent imaging results. <Ivelisse Lu MD - Last Filed: 01/06/24 00:57> Radiologist's impression: Lower chest: Mild pleural parenchymal scarring is seen in the right middle lobe. Moderate atherosclerotic calcifications are noted in the coronary arteries. Liver: The liver has a nodular capsular contour, consistent with micronodular cirrhosis. No focal liver lesions are identified on monophasic imaging. Spleen: Previous splenectomy noted with no significant intraabdominal splenosis seen. Pancreas: Unremarkable. Gallbladder: Unremarkable. Kidney: There is a nonobstructing 8 mm stone seen in the midzone of the right kidney. There is a 9 mm hypodense lesion in the upper pole of the left kidney, too small to further characterize. Adrenal: Unremarkable. Bowel: The gastric antrum is collapsed and difficult to evaluate. Previous appendectomy noted with no significant appendiceal stump identified. Vascular: Small esophageal varices are present. Lymph: Unremarkable. Peritoneum: Unremarkable. No pneumoperitoneum is seen. No significant ascites is noted. Pelvis: The patient is status post hysterectomy. Soft tissue: Unremarkable. Bone: Mild levoscoliosis is noted with severe degenerative disc disease seen at L4- IMPRESSION: 1. The liver has a nodular capsular contour, consistent with micronodular cirrhosis. Esophageal varices are present and consistent with portal hypertension. <Ivelisse Lu MD - Last Filed: 01/06/24 00:57> ECG Data Attestation: I personally reviewed and interpreted this ECG as follows: <Ivelisse Lu MD - Last Filed: 01/06/24 00:57> ECG interpretation date: 01/05/24 <Ivelisse Lu MD - Last Filed: 01/06/24 00:57> Discharge Plan Discharge Clinical Impression: Hypertension, portal, Polysubstance abuse, Drug-induced nausea and vomiting Esophageal varices Qualifiers: Esophageal varices type: unspecified type Esophageal varices bleeding: without bleeding Qualified Code(s): I85.00 - Esophageal varices without bleeding Abdominal pain Qualifiers: Abdominal location: unspecified location Qualified Code(s): R10.9 - Unspecified abdominal pain Vomiting Qualifiers: Vomiting type: unspecified Nausea presence: with nausea Qualified Code(s): R11.2 - Nausea with vomiting, unspecified <Ivelisse Lu MD - Last Filed: 01/06/24 00:57> Patient Disposition: Home, Self-Care <Ivelisse Lu MD - Last Filed: 01/06/24 00:57> Condition: Improved <Ivelisse Lu MD - Last Filed: 01/06/24 00:57> Instructions: Acute Nausea and Vomiting (DC) <Ivelisse Lu MD - Last Filed: 01/06/24 00:57> Additional Instructions: Recommend follow-up with your clinic as you need a specialty consultation for evaluation of liver cirrhosis as well as esophageal varices and portal hypertension. It appears that you have been seen through [facility] in the past. Increase fluids. Return for worsening symptoms and as needed <Ivelisse Lu MD - Last Filed: 01/06/24 00:57> Prescriptions: New promethazine 25 mg tablet 25 mg PO Q6H PRNQty: 10 0RF No Action levothyroxine 150 mcg tablet 150 mcg PO DAILY albuterol sulfate [Ventolin HFA] 90 mcg/actuation HFA aerosol inhaler 2 puff inhalation Q6H PRN (Reason: wheezing) valsartan 160 mg tablet 160 mg PO DAILY <Ivelisse Lu MD - Last Filed: 01/06/24 00:57> Follow Up/Referrals: Provider,Not a Local [Primary Care Provider] - <Ivelisse Lu MD - Last Filed: 01/06/24 00:57> Stand Alone Forms: [facility] Info Instructions <Ivelisse Lu MD - Last Filed: 01/06/24 00:57>
[2024-01-05 21:52] LABS: PCR FLU A Negative PCR FLU A (Negative); PCR FLU B Negative PCR FLU B (Negative); PCR RSV Negative PCR RSV (Negative); SARS PCR* Negative SARS-CoV-2 (Negative)
[2024-01-05 22:08] LABS: Lactate Sepsis w/Reflex* 3.7 mmol/L (0.5-1.9)
[2024-01-05] MEDS: 0.9 % SODIUM CHLORIDE 1000 ml 1,000 ML IV ×2 (22:08→23:40)
[2024-01-05 22:09] LABS: Basophils Percent Auto 1.2 % (0.0-3.0); Hematocrit 37.7 % (33.0-51.0); Hemoglobin* 13.2 gm/dL (12.0-16.0); Lymphocytes Percent Auto 23.9 % (20-44); Mean Corpuscular HGB Conc 35 gm/dL (32-36); Mean Corpuscular Hemoglobin 32 pg (26-34); Mean Corpuscular Volume 92 fL (80-100); Monocytes Percent Auto 7.5 % (0.0-11.0); Neutrophils Percent Auto 67.4 % (42.0-72.0); Platelet Count* 328 K/uL (140-440); RDW Coefficient of Variation % 11.6 % (11.5-15.5); Red Blood Count 4.11 m/uL (4.00-5.20); White Blood Count* 4.15 K/uL (4.50-11.00)
[2024-01-05] MEDS: ONDANSETRON 2 MG/ML inj 4 MG IVP (22:10)
[2024-01-05] MEDS: KETOROLAC 15 MG/ML inj IVP (22:10)
[2024-01-05 22:17] LABS: Slide Review Reflex Yes
[2024-01-05 22:31] LABS: Albumin* 4.6 g/dL (3.3-5.0); Chloride* 104 mmol/L (96-114)
[2024-01-05 22:32] LABS: Potassium* 3.7 mmol/L (3.6-5.1); Sodium* 136 mmol/L (135-149)
[2024-01-05 22:34] LABS: Bilirubin Total* 1.1 mg/dL (0.1-1.5); Creatinine* 0.4 mg/dL (0.5-1.5); Est. Creatinine Clearance* 45.54; Estimated Glomerular Filt Rate 111 ml/min
[2024-01-05 22:35] LABS: Alkaline Phosphatase* 82 U/L (40-150); Anion Gap 10 mEq/L (7-15); Aspartate Amino Transferase* 40 U/L (12-35); Blood Urea Nitrogen* 13 mg/dL (7-30); Calcium* 9.7 mg/dL (8.4-10.6); Carbon Dioxide* 22 mmol/L (20-32); Glucose* 93 mg/dL (60-115); Total Protein* 8.6 g/dL (6.0-8.3)
[2024-01-05 22:40] VITALS: TEMP 37.6
[2024-01-05 22:43] LABS: C Reactive Protein* < 0.5 mg/dL (0.5-1.0)
--- NOTE | 2024-01-05 22:54 | CT_ITS ---
Patient: SHAYNA REBOLLEDO Facility:?[facility] Patient ID:?[id number] Site Patient ID:?[id number]. Site :?[id number] Study:?CT-Abdomen/Pelvis with 64cc [id number] contrast-01/05/2024 11:27:36 PM Ordering Physician:Tabatha Kennedy Final Report: INDICATION: Vomiting and abdominal pain TECHNIQUE: CT Abdomen and pelvis with i.v. contrast. Coronal and sagittal reformats were obtained. CONTRAST: 64 mL Isovue 370 COMPARISON: None FINDINGS: Lower chest: Mild pleural parenchymal scarring is seen in the right middle lobe. Moderate atherosclerotic calcifications are noted in the coronary arteries. Liver: The liver has a nodular capsular contour, consistent with micronodular cirrhosis. No focal liver lesions are identified on monophasic imaging. Spleen: Previous splenectomy noted with no significant intraabdominal splenosis seen. Pancreas: Unremarkable. Gallbladder: Unremarkable. Kidney: There is a nonobstructing 8 mm stone seen in the midzone of the right kidney. There is a 9 mm hypodense lesion in the upper pole of the left kidney, too small to further characterize. Adrenal: Unremarkable. Bowel: The gastric antrum is collapsed and difficult to evaluate. Previous appendectomy noted with no significant appendiceal stump identified. Vascular: Small esophageal varices are present. Lymph: Unremarkable. Peritoneum: Unremarkable. No pneumoperitoneum is seen. No significant ascites is noted. Pelvis: The patient is status post hysterectomy. Soft tissue: Unremarkable. Bone: Mild levoscoliosis is noted with severe degenerative disc disease seen at L4- IMPRESSION: 1. The liver has a nodular capsular contour, consistent with micronodular cirrhosis. Esophageal varices are present and consistent with portal hypertension. Dictated by Nav Downing MD @ 01/05/2024 11:44:45 PM Please note that all CT scans at this facility use dose modulation, iterative reconstruction, and/or weight-based dosing when appropriate to reduce radiation dose to as low as reasonably achievable. Dictated by: Nav Downing MD @ 01/05/2024 23:48:24 Signed by:?Nav Downing MD @01/05/2024 11:48:24 PM (Electronic Signature)
[2024-01-05 23:14] LABS: Slide Review Acceptable Review (Acceptable)
[2024-01-05 23:15] LABS: Troponin I* 0.06 ng/mL (0.01-0.04)
[2024-01-05 23:16] LABS: Magnesium* 1.7 mg/dL (1.5-2.6)
[2024-01-05 23:38] LABS: Alanine Aminotransferase* 30 U/L (4-35)
[2024-01-05] MEDS: MAGNESIUM IV 2 GM/50 ML PIGGYBACK IVPB (23:40)
[2024-01-06 00:04] LABS: Lactate Sepsis 2 Hour 1.3 mmol/L (0.5-1.9)
[2024-01-06] MEDS: LORazepam 2 MG/ML inj 0.5 MG IVP (00:11)
[2024-01-06 00:13] LABS: Troponin, Point-of-Care* 0.07 ng/ml (0.01-0.04)
[2024-01-06 00:20] VITALS: BP 174/120; PULSE 72; RESP 16; O2SAT 98
[2024-01-06 00:27] LABS: Ethanol* < 0.01 % (0.01-0.03)
[2024-01-06 00:30] VITALS: O2SAT 94
[2024-01-06] MEDS: MORPHINE 4 MG/ML INJ IVP (01:02)
[2024-01-06 01:06] LABS: Appearance Urine Clear (Clear); Bilirubin Urine Negative (Negative); Color Urine Yellow (Yellow); Glucose Urine Negative (Negative); Ketones Urine 1+ (Negative)
[2024-01-06 01:07] LABS: Troponin I* 0.08 ng/mL (0.01-0.04)
[2024-01-06 01:07] LABS: Blood Urine 1+ (Negative); Leukocyte Esterase Urine Negative (Negative); Nitrite Urine Negative (Negative); Protein Urine 1+ (Negative); RBC Urine 0-2 (0-2); Urobilinogen Urine 0.2 (0.2-1.0); WBC Urine 0-2 (0-5); pH Urine 7.5 (5.0-8.5)
[2024-01-06 01:08] LABS: Amorphous Sediment Urine Few; Amphetamine Screen Urine POSITIVE (Negative); Barbiturate Screen Urine Negative (Negative); Benzodiazepines Screen Urine Negative (Negative); Cannabinoid Screen Urine POSITIVE (Negative); Cocaine Screen Urine POSITIVE (Negative); Methadone Screen Urine Negative (Negative); Methamphetamines Screen Urine Negative (Negative); Opiate Screen Urine Negative (Negative); Oxycodone Screen Urine Negative (Negative); Phencyclidine Screen Urine Negative (Negative); Squamous Epithelial Cell Urine Few (None-Few); Tricyclic Antidepressant Urine Negative (Negative)
[2024-01-06 01:58] LABS: Troponin, Point-of-Care* 0.09 ng/ml (0.01-0.04)
[2024-01-06 02:13] VITALS: BP 164/105; PULSE 75; RESP 16; TEMP 37.2; O2SAT 94
[2024-01-06 02:14] VITALS: BP 164/105; PULSE 75; RESP 16; TEMP 37.2
== END 2024-01-06 02:14 | disposition home or self-care (01) ==
PROVIDERS: Emergency Provider Family Medicine
DX: R11.10 Vomiting, unspecified (principal)
CPT/HCPCS: 36415; 74177; 80053; 80306; 81001; 82077; 83605; 83735; 84484; 85025; 86140; 87631; 93005; 94761; 96365; 96375; 99284; 99285; J1885; J2060; J2270; J2405; J3475; J7030; Q9967

== ENCOUNTER 2024-01-07 13:07 | Emergency (ER) | payer OTHER, SELFPAY ==
[2024-01-07] VITALS (16 sets, daily range): BP systolic 153–215; BP diastolic 68–166; PULSE 52–59; RESP 18; TEMP 36.9; O2SAT 80–100; BMI 30.1
[2024-01-07 13:39] LABS: Lactate* 2.8 mmol/L (0.5-1.9)
--- NOTE | 2024-01-07 13:41 | ED_ITS ---
HPI - General Adult General Chief complaint: Weakness Stated complaint: Hypertension Time Seen by Provider: 01/07/24 13:28 History of Present Illness HPI narrative: This 63-year-old female comes in reporting some chest discomfort from this morning. She also has some nausea symptoms. She was seen about 36 hours ago here and discharged home. She had nausea and vomiting at that time and denied initially using any street drugs. Her troponin was slightly elevated at 0.08. Urine drug screen was obtained then and returned positive for cocaine, amphetamines, and marijuana. The patient states that she did not have chest pain at that time but has developed some now. She does have some ongoing nausea symptoms. She arrives with normal vital signs and initial EKG shows no changes. She is admitting to using cocaine just this 1 time and states she will never do that again. She denies using anything since a couple days ago. Related Data Home Medications Medication Instructions Recorded Confirmed albuterol sulfate 90 mcg/actuation 2 puff inhalation Q6H PRN wheezing 01/05/24 01/05/24 aerosol inhaler (Ventolin HFA) levothyroxine 150 mcg tablet 150 mcg PO DAILY 01/05/24 01/05/24 valsartan 160 mg tablet 160 mg PO DAILY 01/05/24 01/05/24 Previous Rx's Medication Instructions Recorded promethazine 25 mg tablet 25 mg PO Q6H PRN #10 tabs 01/06/24 Allergies Allergy/AdvReac Type Severity Reaction Status Date / Time lisinopril Allergy Mild Cough Verified 01/07/24 13:14 prednisone Allergy Unknown Verified 01/07/24 13:14 Review of Systems Status of ROS: Reports: 10 or more systems reviewed and unremarkable except as noted in History and below Narrative: Constitutional: No fevers, no weight gain or loss. Eyes: No discharge. No vision changes. HENT: No congestion, no sore throat, no ear pain. Cardiovascular: No palpitations. Respiratory: No shortness of breath, no wheezes, no cough. Gastrointestinal: No abdominal pain, no diarrhea. She reports some nausea and vomiting. Genitourinary: No dysuria, no hematuria. Musculoskeletal: Normal range of motion. Skin: No rashes, no pruritis. Neurological: No dizziness, weakness, sensory change, speech change. Endo/Heme/Allergies: No bruising or bleeding. No polydipsia. Pysch: no suicidality, no anxiety, no insomnia. All other systems reviewed and are negative. [facility] Social History Smoking Status: Never smoker How often do you have a drink containing alcohol: never AUDIT-C Alcohol total score: 0 Non-prescribed substance use: marijuana (any form) and amph etamines/methamphetamines service: No Exam Narrative: Exam Narrative: Constitutional: Well-developed, well-nourished, no acute distress. HEENT: Normocephalic, atraumatic. Neck: Normal range of motion. Nontender. Supple. Heart: Regular. No murmurs. Normal rate. Intact distal pulses. Lungs: Clear to auscultation. No chest discomfort. No wheezes, rhonchi, or rales. Abdomen: Normal bowel sounds. Nontender. No rebound tenderness. Genitalia: Deferred. Back: No midline tenderness. Normal range of motion. Extremities: Normal range of motion. No injury. Skin: Intact. No rash. Warm. No erythema or pallor. Neurologic: No altered sensation. No weakness. Alert and oriented. Psychiatric: No suicidality. No anxiety or depression. No insomnia. Nursing notes and vitals signs are reviewed. Const: Vital Signs, click to edit/add: Vital Signs - 24 hr 01/07/24 13:11 01/07/24 13:11 01/07/24 13:12 Temperature 98.5 F Pulse Rate 59 L 59 L Pulse Rate [Right Pulse Oximeter] 52 L Respiratory Rate 18 Blood Pressure 154/90 H Blood Pressure [Ri ght Upper Arm] 154/90 H Pulse Oximetry 98 99 99 Oxygen Delivery Me thod Room Air 01/07/24 13:15 01/07/24 13:30 01/07/24 13:31 Temperature Pulse Rate 55 L 58 L 55 L Pulse Rate [Right Pulse Oximeter] Respiratory Rate Blood Pressure 199/106 H Blood Pressure [Ri ght Upper Arm] Pulse Oximetry 97 99 97 Oxygen Delivery Me thod 01/07/24 13:32 01/07/24 13:33 01/07/24 13:45 Temperature Pulse Rate 57 L 55 L Pulse Rate [Right Pulse Oximeter] Respiratory Rate Blood Pressure 193/101 H Blood Pressure [Ri ght Upper Arm] Pulse Oximetry 85 L 98 97 Oxygen Delivery Me thod 01/07/24 13:47 01/07/24 13:48 01/07/24 14:00 Temperature Pulse Rate 55 L 56 L 56 L Pulse Rate [Right Pulse Oximeter] Respiratory Rate Blood Pressure 181/105 H Blood Pressure [Ri ght Upper Arm] Pulse Oximetry 98 100 97 Oxygen Delivery Me thod 01/07/24 14:02 01/07/24 14:18 01/07/24 14:32 Temperature Pulse Rate 58 L Pulse Rate [Right Pulse Oximeter] Respiratory Rate Blood Pressure 186/111 H 215/95 H 178/166 H Blood Pressure [Ri ght Upper Arm] Pulse Oximetry 98 Oxygen Delivery Me thod 01/07/24 14:39 01/07/24 15:02 Temperature Pulse Rate Pulse Rate [Right Pulse Oximeter] Respiratory Rate Blood Pressure 153/68 H Blood Pressure [Ri ght Upper Arm] Pulse Oximetry 80 L Oxygen Delivery Me thod Course Vital Signs Vital signs: Initial Vital Signs Temperature 98.5 F 01/07/24 13:11 Temperature Source Temporal Artery Scan 01/07/24 13:11 Pulse Rate 59 L 01/07/24 13:11 Pulse Rhythm Regular 01/07/24 13:11 Pulse Strength 3+ Normal 01/07/24 13:11 Respiratory Rate 18 01/07/24 13:11 Blood Pressure 154/90 H 01/07/24 13:11 Blood Pressure Mean 111 H 01/07/24 13:11 Blood Pressure Position Supine 01/07/24 13:11 Pulse Oximetry 98 01/07/24 13:11 Oxygen Delivery Method Room Air 01/07/24 13:11 Vital Signs Temperature 98.5 F 01/07/24 13:11 Pulse Rate 59 L 01/07/24 13:11 Respiratory Rate 18 01/07/24 13:11 Blood Pressure 154/90 H 01/07/24 13:11 Pulse Oximetry 98 01/07/24 13:11 Oxygen Delivery Method Room Air 01/07/24 13:11 Temperature 98.5 F 01/07/24 13:11 Pulse Rate 58 L 01/07/24 14:02 Respiratory Rate 18 01/07/24 13:11 Blood Pressure 153/68 H 01/07/24 15:02 Pulse Oximetry 80 L 01/07/24 14:39 Oxygen Delivery Method Room Air 01/07/24 13:11 Medications Administered Medications: Discontinued Medications Generic Name Dose Route Start Last Admin Trade Name Alyssa DE JESUS Reason Stop Dose Admin Haloperidol Lactate 5 mg 01/07/24 14:28 01/07/24 14:35 Haloperidol 5 Mg/Ml Inj IV 01/07/24 14:29 5 mg ONCE ONE Administration Sodium Chloride 1,000 mls @ 1,000 mls/hr 01/07/24 13:45 01/07/24 14:50 0.9 % Sodium Chloride 1000 Ml IV 01/07/24 14:44 Infused .Q1H TEENA Infusion Ondansetron HCl 4 mg 01/07/24 13:40 01/07/24 13:48 Ondansetron 2 Mg/Ml Inj IVP 01/07/24 13:41 4 mg ONCE ONE Administration Potassium Bicarbonate 50 meq 01/07/24 14:15 01/07/24 14:25 Potassium Bicarb 25 Meq Effervescent Tab PO 01/07/24 14:16 50 meq ONCE ONE Administration Medical Decision Making MDM Narrative Medical decision making narrative: Medical decision making narrative: This patient comes in reporting nausea and vomiting and is concerned about some chest discomfort. She was seen a couple days ago and had similar symptoms and at that time her lab results returned with slight bump of her troponin. She comes in today with concern about that. It was likely due to taking cocaine which she states she has only done once and does not plan to do that again. An IV was established and she received a L of normal saline and a dose of Zofran. Labs returned with a potassium level of 2.8. I did order potassium bicarb in it and she took it orally and about fiber 10 minutes later she did have an emesis and probably lost some of that medicine. When she arrived the nurse melodie some labs including a lactate level. The lactate returned at 2.8 however she was not displaying triggers that indicated and need for workup for sepsis. The patient did receive IV fluids and states that she is feeling much better. She had also taken marijuana and because of her emesis today despite taking anti nausea medicines I did shoes then to give her 5 mg of Haldol intravenously in the event that her nausea and vomiting may be related to met marijuana use. This patient is okay to be discharged home. She does have nausea medicine that she can use as needed and directed. She was mostly interested in checking her heart out and was reassured to hear that her troponin returned at 0.04. This is half of what it was a couple days ago during the time when she was previously evaluated and at which time she had taken cocaine. Lab Data Labs: Lab Results 01/07/24 01/07/24 Range/Units 13:25 13:40 WBC 3.91 L (4.50-11.00) K/uL RBC 3.93 L (4.00-5.20) m/uL Hgb 12.6 (12.0-16.0) gm/dL Hct 36.4 (33.0-51.0) % MCV 93 (80-100) fL MCH 32 (26-34) pg MCHC 35 (32-36) gm/dL RDW Coeff of Nathan 11.9 (11.5-15.5) % Plt Count 334 (140-440) K/uL Neut % (Auto) 44.0 (42.0-72.0) % Lymph % (Auto) 41.7 (20-44) % [place] % (Auto) 11.0 (0.0-11.0) % Eos % (Auto) 1.0 (0.0-7.0) % Baso % (Auto) 2.3 (0.0-3.0) % Neut # (Auto) 1.70 (1.7-7.0) K/uL Lymph # (Auto) 1.60 (0.90-2.90) K/uL [place] # (Auto) 0.40 (0.00-0.90) K/UL Eos # (Auto) 0.00 (0.00-0.50) K/uL Baso # (Auto) 0.10 (0.00-0.30) K/uL Abs Immat Gran (auto) 0.00 (0.00-0.30) K/uL Imm/Tot Granulo (auto) 0.0 % Sodium 138 (135-149) mmol/L Potassium 2.8 L* (3.6-5.1) mmol/L Chloride 105 (96-114) mmol/L Carbon Dioxide 25 (20-32) mmol/L Anion Gap 8 (7-15) mEq/L BUN 9 (7-30) mg/dL Creatinine 0.5 (0.5-1.5) mg/dL Estimated Creat Clear 47.63 Estimated GFR 105 ml/min Glucose 112 (60-115) mg/dL Lactate 2.8 H (0.5-1.9) mmol/L Calcium 9.2 (8.4-10.6) mg/dL POC Troponin I 0.04 (0.01-0.04) ng/ml ECG Data Attestation: I personally reviewed and interpreted this ECG as follows: Interpretation: Normal sinus rhythm. Rate is 54 beats per minute. There are no ST or T-wave abnormalities. Discharge Plan Discharge Clinical Impression: Vomiting Patient Disposition: Home w/ Parent or Adult Condition: Improved Additional Instructions: Increase diet as tolerated. Take frequent sips of fluid. Follow up with MD or return if worsening. Prescriptions: No Action levothyroxine 150 mcg tablet 150 mcg PO DAILY albuterol sulfate [Ventolin HFA] 90 mcg/actuation HFA aerosol inhaler 2 puff inhalation Q6H PRN (Reason: wheezing) valsartan 160 mg tablet 160 mg PO DAILY promethazine 25 mg tablet 25 mg PO Q6H PRNQty: 10 0RF Follow Up/Referrals: Akanksha Jade, [employer], [employer] [Primary Care Provider] - Stand Alone Forms: [employer] Info Instructions
[2024-01-07 13:45] LABS: Basophils Percent Auto 2.3 % (0.0-3.0); Hematocrit 36.4 % (33.0-51.0); Hemoglobin* 12.6 gm/dL (12.0-16.0); Lymphocytes Percent Auto 41.7 % (20-44); Mean Corpuscular HGB Conc 35 gm/dL (32-36); Mean Corpuscular Hemoglobin 32 pg (26-34); Mean Corpuscular Volume 93 fL (80-100); Platelet Count* 334 K/uL (140-440); RDW Coefficient of Variation % 11.9 % (11.5-15.5); Red Blood Count 3.93 m/uL (4.00-5.20); White Blood Count* 3.91 K/uL (4.50-11.00)
[2024-01-07] MEDS: 0.9 % SODIUM CHLORIDE 1000 ml 1,000 ML IV (13:45)
[2024-01-07] MEDS: ONDANSETRON 2 MG/ML inj 4 MG IVP (13:48)
[2024-01-07 13:49] LABS: Slide Review Reflex No
[2024-01-07 13:58] LABS: Troponin, Point-of-Care* 0.04 ng/ml (0.01-0.04)
[2024-01-07 13:59] LABS: Chloride* 105 mmol/L (96-114); Sodium* 138 mmol/L (135-149)
[2024-01-07 14:02] LABS: Anion Gap 8 mEq/L (7-15); Blood Urea Nitrogen* 9 mg/dL (7-30); Carbon Dioxide* 25 mmol/L (20-32); Creatinine* 0.5 mg/dL (0.5-1.5); Est. Creatinine Clearance* 47.63; Estimated Glomerular Filt Rate 105 ml/min; Glucose* 112 mg/dL (60-115)
[2024-01-07 14:03] LABS: Calcium* 9.2 mg/dL (8.4-10.6)
[2024-01-07 14:06] LABS: Potassium* 2.8 mmol/L (3.6-5.1)
[2024-01-07] MEDS: POTASSIUM BICARB 25 MEQ EFFERVESCENT TAB 50 MEQ PO (14:25)
[2024-01-07] MEDS: HALOPERIDOL 5 MG/ML INJ IV (14:35)
--- NOTE | 2024-01-07 14:38 | ED.NURSE ---
pt vomited up emesis
== END 2024-01-07 15:46 | disposition home or self-care (01) ==
PROVIDERS: Emergency Provider Emergency Medicine Emergency Medical Services; PCP Nurse Practitioner Family
DX: R11.10 Vomiting, unspecified (principal)
CPT/HCPCS: 36415; 80048; 83605; 84484; 85025; 96374; 99284; A9270; J1630; J2405; J7030

== ENCOUNTER 2024-01-08 10:27 | Outpatient (CLI) | payer OTHER, SELFPAY | END 2024-01-08 10:28 | disposition home or self-care (01) | PROVIDERS: PCP Nurse Practitioner Family; Visit Provider Nurse Practitioner Family | DX: R10.9 Unspecified abdominal pain (principal); E03.9 Hypothyroidism, unspecified; R53.83 Other fatigue; T80.89XA Other complications following infusion, transfusion and therapeutic injection, initial encounter | CPT/HCPCS: 80053; 82150; 83690; 84439; 84443; 84484; 85025 ==

== ENCOUNTER 2024-01-15 13:32 | Outpatient (CLI) | payer OTHER, SELFPAY | END 2024-01-15 13:33 | disposition home or self-care (01) | PROVIDERS: PCP Nurse Practitioner Family; Visit Provider Nurse Practitioner Family | DX: R10.30 Lower abdominal pain, unspecified (principal); E03.9 Hypothyroidism, unspecified; I10 Essential (primary) hypertension | CPT/HCPCS: 80053; 81001; 82150; 83690; 84439; 84443; 87086 ==

== ENCOUNTER 2024-03-04 10:13 | Outpatient (CLI) | payer OTHER, SELFPAY | END 2024-03-04 10:14 | disposition home or self-care (01) | PROVIDERS: PCP Nurse Practitioner Family; Visit Provider Nurse Practitioner Family | DX: I10 Essential (primary) hypertension (principal); E03.9 Hypothyroidism, unspecified | CPT/HCPCS: 80053; 84439; 84443 ==

== ENCOUNTER 2024-05-03 12:17 | Outpatient (CLI) | payer OTHER, SELFPAY | END 2024-05-03 12:18 | disposition home or self-care (01) | PROVIDERS: PCP Nurse Practitioner Family; Visit Provider Nurse Practitioner Family | DX: E03.9 Hypothyroidism, unspecified (principal); N39.41 Urge incontinence; I10 Essential (primary) hypertension | CPT/HCPCS: 84439; 84443 ==

== ENCOUNTER 2024-06-08 10:00 | Outpatient (RCR) | payer OTHER, SELFPAY | END 2024-10-06 23:59 | disposition home or self-care (01) | PROVIDERS: PCP Nurse Practitioner Family; Visit Provider Nurse Practitioner Family | DX: H81.10 Benign paroxysmal vertigo, unspecified ear (principal); M99.01 Segmental and somatic dysfunction of cervical region; Z51.89 Encounter for other specified aftercare | CPT/HCPCS: 95992; 97110; 97162 ==

== ENCOUNTER 2024-07-26 14:01 | Outpatient (CLI) | payer OTHER, SELFPAY | END 2024-07-26 14:02 | disposition home or self-care (01) | PROVIDERS: PCP Nurse Practitioner Family; Visit Provider Nurse Practitioner Family | DX: E03.9 Hypothyroidism, unspecified (principal); I10 Essential (primary) hypertension; E87.6 Hypokalemia; R53.83 Other fatigue; Z13.6 Encounter for screening for cardiovascular disorders | CPT/HCPCS: 80061; 84443 ==

== ENCOUNTER 2024-08-06 10:46 | Outpatient (CLI) | payer OTHER, SELFPAY | END 2024-08-06 10:47 | disposition home or self-care (01) | LOC: KYNREF 10:47 | PROVIDERS: PCP Nurse Practitioner Family; Visit Provider Nurse Practitioner Family | DX: R05.2 Subacute cough (principal); E03.9 Hypothyroidism, unspecified; I10 Essential (primary) hypertension | CPT/HCPCS: 85025 ==

== ENCOUNTER 2024-08-24 10:52 | Outpatient (CLI) | payer OTHER, SELFPAY | END 2024-08-24 10:53 | disposition home or self-care (01) | PROVIDERS: PCP Nurse Practitioner Family; Visit Provider Nurse Practitioner Family | DX: Z00.00 Encounter for general adult medical examination without abnormal findings (principal); I10 Essential (primary) hypertension; E03.9 Hypothyroidism, unspecified; R53.83 Other fatigue; R10.13 Epigastric pain; R20.2 Paresthesia of skin | CPT/HCPCS: 80053; 82306; 82607; 82728; 85025; 85651; 86140 ==

== ENCOUNTER 2024-11-08 09:11 | Outpatient (CLI) | payer OTHER, SELFPAY ==
[2024-11-08 14:56] LABS: PCR FLU A Negative PCR FLU A (Negative); PCR FLU B Negative PCR FLU B (Negative); PCR RSV Negative PCR RSV (Negative); SARS PCR* Negative SARS-CoV-2 (Negative)
== END 2024-11-08 09:12 | disposition home or self-care (01) ==
LOC: KYNREF 09:12
PROVIDERS: PCP Nurse Practitioner Family; Visit Provider Nurse Practitioner Family
DX: J06.9 Acute upper respiratory infection, unspecified (principal); R05.9 Cough, unspecified
CPT/HCPCS: 87631

== ENCOUNTER 2024-11-24 10:20 | Outpatient (CLI) | payer OTHER, SELFPAY | END 2024-11-24 10:21 | disposition home or self-care (01) | LOC: RAD 10:20 | PROVIDERS: PCP Nurse Practitioner Family; Visit Provider Nurse Practitioner Family | DX: Z13.820 Encounter for screening for osteoporosis (principal); M81.0 Age-related osteoporosis without current pathological fracture | CPT/HCPCS: 77080 ==

== ENCOUNTER 2024-12-20 11:34 | Outpatient (CLI) | payer OTHER, SELFPAY ==
[2024-12-20 14:13] LABS: PCR FLU A Negative PCR FLU A (Negative); PCR FLU B Negative PCR FLU B (Negative); SARS PCR* Negative SARS-CoV-2 (Negative)
== END 2024-12-20 11:35 | disposition home or self-care (01) ==
LOC: KYNREF 11:34
PROVIDERS: PCP Nurse Practitioner Family; Visit Provider Nurse Practitioner Family
DX: J06.9 Acute upper respiratory infection, unspecified (principal)
CPT/HCPCS: 87631

== ENCOUNTER 2025-04-08 11:00 | Outpatient (RCR) | payer OTHER, SELFPAY ==
--- NOTE | 2025-03-02 12:53 | PT.OPEX ---
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 Referring MD Dusty Ryan MD Subjective Subjective Pt presents to physical therapy with L knee pain that began end of January 2025 when she was pivoting getting out of car, felt sharp pain under patella. Aggravating: walking >1 mile, climbing stairs, prolonged standing. Easing factors: heat and ice. 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 Pt attributes falls and dizziness to anemia. History of L TKA 2016 Social history: Live with boyfriend in a house with 2-3 stairs, 12 stairs inside. 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 Therapy Limitations/ Not Limited Systems Review Objective Other/Pertinent Knee ROM Objective Extension: lacking 2 degrees R/ lacking 5 degrees with increased pain at end range Flexion: 142 degrees R/ 135 degrees with increased pain with increased pain at end range MMT: Hip flexion: 5/5 R / 4/5 L Hip extension: 3+/5 (can complete bridge) Hip abduction: NT Knee flexion: 5/5 R / 4/5 L Knee extension: 5/5 R / 4/5 L increased pain Ankle DF: 5/5 bilaterally Ankle PF: 3/5 bilaterally Patellar grind: positive on L 30 second sit to stand: NT Functional Test LEFS: 35/80 Performed & Score Assessment Assessment/ Patient is a 64 year old with L knee pain that began Impression in January after stepping out of car. Pt demonstrates impairments in left knee range of motion, strength, and increased pain. These impairments impact the patient's transfers, ambulation, stair navigation, and participation in ADLs and IADLs. Patient will benefit from skilled physical therapy to address the impairments and activity limitations listed above. Plan of Care Rehabilitation Fair Potential Rehabilitation Secondary to pt's chronic autoimmune conditions Potential Comments Physical Therapy Short term goals 6 weeks Goals 1. Patient will demonstrate independence with initial home exercise program 2. Patient will demonstrate full knee range of motion with no increase in pain 3. Patient will demonstrate 5/5 lower extremity strength to demonstrate improved tolerance with ADLs director of broadcast goals 12 weeks 1. Patient will demonstrate independence with finalized home exercise program to continue to manage condition 2. Patient will ambulate greater than 1 mile with no increase in pain in order to return to prior level of function 3. Patient will ascend/descend 12 stairs with no increase in pain in order to navigate home safely 4. Patient will score > 50/80 on LEFS to demonstrate decreased pain and disability related to symptoms 5. Patient will complete 15 or greater sit to stand with no increase in knee pain in 30 seconds to match age and gender matched norms. Coordination/ Referral Source Communication With Treatment Plan/ Gait Training,Joint Mobilization,Manual Therapy, Direct Interventions Neuromuscular Re-ed,Self-Care/Home Management, Therapeutic Activities,Therapeutic Exercises Frequency/Duration 1x/week for up to 12 weeks Patient Will Be Completion of LTG(s),Skills Plateau,Independent w/HEP Discharged From Therapy Evaluation Billing Untimed Code 20 Treatment Minutes Complexity Low Certification Information Provider Signature Communication Only-No Signature Required Required
== END 2025-08-06 23:59 | disposition home or self-care (01) ==
PROVIDERS: PCP Nurse Practitioner Family; Visit Provider Orthopaedic Surgery
DX: M25.862 Other specified joint disorders, left knee (principal); Z96.652 Presence of left artificial knee joint; Z51.89 Encounter for other specified aftercare
CPT/HCPCS: 97110; 97140; 97161; 97535

== ENCOUNTER 2025-05-06 12:41 | Outpatient (CLI) | payer OTHER, SELFPAY | END 2025-05-06 12:42 | disposition home or self-care (01) | LOC: KYNREF 12:42 | PROVIDERS: PCP Nurse Practitioner Family; Visit Provider Nurse Practitioner Family | DX: R11.2 Nausea with vomiting, unspecified (principal); E87.6 Hypokalemia | CPT/HCPCS: 80048 ==

== ENCOUNTER 2025-09-29 11:53 | Outpatient (CLI) | payer MEDICARE, BC, SELFPAY | END 2025-09-29 11:54 | disposition home or self-care (01) | PROVIDERS: PCP Nurse Practitioner Family; Visit Provider Nurse Practitioner Family | DX: E03.9 Hypothyroidism, unspecified (principal); I10 Essential (primary) hypertension; K74.60 Unspecified cirrhosis of liver | CPT/HCPCS: 80053; 84443; 87522 ==